=== PATIENT | male | born 1990 | race Two or more races ===

== ENCOUNTER → 2018-08-21 16:11 | Emergency (ER) | payer OTHER ==
--- NOTE | 2018-08-21 16:45 | ED ---
GI/ HPI - HPI Summary HPI Summary: 28-year-old male presents with hemorrhoids for the past 2 days. He denies any bleeding. He states just has some pain. Denies any constipation. No diarrhea. No abdominal pain. No nausea vomiting. hasn't tried anything for the pain. no urinary symptoms. has had this before. no medical conditions. - History of Current Complaint Chief Complaint: EDRectalPain Time Seen by Provider: 08/21/18 16:18 Stated Complaint: HEMMERRHOID PER PT Pain Intensity: 5 - Allergy/Home Medications Allergies/Adverse Reactions: Allergies Allergy/AdvReac Type Severity Reaction Status Date / Time No Known Allergies Allergy Verified 08/21/18 16:16 PMH/Surg Hx/FS Hx/Imm Hx Endocrine/Hematology History: Denies: Hx Anticoagulant Therapy Respiratory History: Denies: Hx Asthma Infectious Disease History: No Infectious Disease History: Denies: Traveled Outside the [place] in Last 30 Days - Family History Known Family History: Positive: Non-Contributory - Social History Alcohol Use: Occasionally Substance Use Type: Reports: None Review of Systems Negative: Fever Negative: Chest Pain Negative: Shortness Of Breath Negative: Abdominal Pain Positive: other - hemorrhoids All Other Systems Reviewed And Are Negative: Yes Physical Exam Triage Information Reviewed: Yes Vital Signs On Initial Exam: Initial Vitals Temp Pulse Resp BP Pulse Ox 97.1 F 59 18 152/70 98 08/21/18 16:13 08/21/18 16:13 08/21/18 16:13 08/21/18 16:13 08/21/18 16:13 Vital Signs Reviewed: Yes Appearance: Positive: Well-Appearing Skin: Positive: Warm, Dry Head/Face: Positive: Normal Head/Face Inspection Eyes: Positive: Normal, Conjunctiva Clear ENT: Positive: Pharynx normal Respiratory/Lung Sounds: Positive: Clear to Auscultation, Breath Sounds Present Cardiovascular: Positive: Normal, RRR Abdomen Description: Positive: Nontender, Soft Bowel Sounds: Positive: Present Musculoskeletal: Positive: Normal Neurological: Positive: Normal Psychiatric: Positive: Normal Diagnostics - Vital Signs Vital Signs Temp Pulse Resp BP Pulse Ox 08/21/18 16:13 97.1 F 59 18 152/70 98 - Laboratory Lab Statement: Any lab studies that have been ordered have been reviewed, and results considered in the medical decision making process. GIGU Course/Dx - Course Course Of Treatment: 28-year-old male presents with hemorrhoids for the past 2 days. He denies any bleeding. He states just has some pain. Denies any constipation. No diarrhea. No abdominal pain. No nausea vomiting. hasn't tried anything for the pain. no urinary symptoms. has had this before. no medical conditions. On exam nontender abdomen. has external hemorrhoid on exam without bleeding. will treat with dibucaine and anuscol. gave referral to surgery. patient understand and agrees with plan. - Diagnoses Differential Diagnoses - Male: Urinary Tract Infection, Other - hemorrhoids, rectal bleed Provider Diagnoses: Hemorrhoids Discharge - Sign-Out/Discharge Documenting (check all that apply): Patient Departure Patient Received Moderate/Deep Sedation with Procedure: No - Discharge Plan Condition: Good Disposition: HOME Prescriptions: Dibucaine 1% OINT* [Nupercainal 1% oint*] 1 applic TOPICAL QID #1 tube Hydrocortisone SUPP* [Anusol HC Supp*] 25 mg .SEE ORDER BID #30 supp Patient Education Materials: Hemorrhoids (ED) Referrals: Colten Ramirez MD [Medical Doctor] - Additional Instructions: Take ibuprofen for pain every 6 hours for pain Inc fiber Do sitz baths 2 times a day Use anusol twice a day Use dibucaine up to 4 times a day sparingly Follow up with surgery Return to ED if any new or worsening symptoms - Billing Disposition and Condition Condition: GOOD Disposition: Home
[2018-08-21 17:03] VITALS: BP 141/67
== END | disposition home or self-care (01) ==
LOC: ED 16:11
DX: K64.9 Unspecified hemorrhoids (principal)
CPT/HCPCS: 99282